=== PATIENT | female | born 1985 | race Caucasian/White ===

== ENCOUNTER 2024-01-16 16:43 | Emergency (ER) | payer OTHER, SELFPAY ==
--- NOTE | 2024-01-16 16:45 | DI.RAD_ITS ---
Exam(s) XR ANKLE LT COMPLETE EXAM: XR ANKLE LT COMPLETE CLINICAL HISTORY: rolled L ankle this am TECHNIQUE: 2D digital imaging was performed of the left ankle. Three images were obtained. AP, lat eral and oblique views were obtained. COMPARISON: No exams were available for comparison FINDINGS: BONES: No acute fracture is present. No bony destructive lesion is seen. JOINTS:The ankle mortise is normally aligned. SOFT TISSUE: Mild soft tissue swelling laterally. IMPRESSION: No acute fracture or dislocation. DATA REPOSITORY: RADIATION DOSE DELIVERED:
[2024-01-16 16:48] VITALS: BP 137/52; PULSE 93; RESP 18; TEMP 36.1; O2SAT 98
--- NOTE | 2024-01-16 17:32 | ED.GENADUL_ITS ---
Discharge Plan Disposition Patient Disposition: Home Condition: Stable Discharge Details Clinical Impression: Sprain of left ankle ED Provider: Eric Palacio Home Meds and New Rx's Prescriptions: Continued venlafaxine [Effexor XR] 150 mg capsule,extended release 24hr 150 mg PO DAILY Discharge Instructions Instructions: Ankle Sprain ED Additional Instructions: You were seen in the emergency department for the sprain of your left ankle, there is no acute fracture seen on x-ray, we will wrap the ankle with an Jeremy wrap for you, please rest, ice, compress and elevate the ankle often over the next few days, please use therapeutic dosing of Tylenol (acetamenophen) & Advil (ibuprofen) in an alternating fashion as follows: Take 1000mg of Tylenol every 6 hours without missing doses- that is 4 times per day. [place] in between the Tylenol dosings, take 400-600mg of Advil also on a 6 hour schedule, that is also 4 times per day. The daily maximum dosing of Tylenol is 4000mg, and the daily maximum dosing of Advil is 2400mg. This is safe to do for weeks. Please note that some common cold medications & prescription pain medications may contain acetamenophen and you need to read OTC drug labels and factor that in to maximum daily dosings. Please follow-up with orthopedics for pain lasting longer than 2 weeks, please return to the emergency department for severe increase in pain, inability to ambulate, complete numbness distal with skin changes Referrals: [facility] [Provider Group] HPI General Date/Time Provider Initiated Documentation: 01/16/24 16:57 . HPI Narrative: 38 year-old female presents to ED today by POV/ambulating with a chief complaint of L ankle pain- rolled it last night. R-side dominant. Quality described as mild medial ankle pain- no sharp tenderness, able to ambulate, no radiation to numbness/tingling, swelling, deformity, skin changes. Severity is described as mild to moderate. Palliating factors include nothing specific attempted. Provoking factors include nothing specific. Patient not anticoagulated. Related Data Home Medications ?Medication ?Instructions ?Recorded ?Confirmed venlafaxine 150 mg 150 mg PO DAILY 01/16/24 01/16/24 capsule,extended release 24 hr (Effexor XR) Allergies Allergy/AdvReac Type Severity Reaction Status Date / Time No Known Allergies Allergy Unverified 01/16/24 16:48 General Stated Complaint: Orthopedic STEFANIE: 4 Review of Systems All systems reviewed & are unremarkable except as noted in HPI and below Exam Narrative Exam Narrative: GENERAL APPEARANCE: Well-nourished, non-toxic, awake and alert, atraumatic, no acute distress. SKIN: Warm, pink, dry, intact, without rashes/lesions/ulcerations. HEAD: Normocephalic, atraumatic, normal hair distribution for gender/age. EYES: Normal conjunctiva, no exudates on lids/lashes. ENT: Nares patent, no circumoral cyanosis, no facial swelling NECK: Supple, trachea midline, painless cervical ROM. LUNGS/CHEST: Non-labored respirations, normal A/P diameter, symmetrical expansion, no chest wall deformity HEART (CV/PV): Regular rate, L dorsalis pedis pulse 2+, no peripheral edema, no JVD. ABDOMEN: Soft, non-distended, no guarding. MSK: Normal ROM, no swelling/deformity to bilateral UEs or LEs, moving all extremities without weakness, no cyanosis, spine midline without tenderness, normal curvature, mild left medial ankle tenderness without crepitus, swelling, deformity or ecchymosis, range of motion intact in the ankle, sensation and circulation intact distally NEURO: Mental Status AAOx4 - alert to person, place, time, events No facial droop, no forehead involvement. Motor: No focal weakness - strength 5/5 in bilateral UEs and LEs, proximal and distal, symmetric. Sensory: sensation intact to light touch globally. Gait normal: patient ambulated without ataxia into ED room. PSYCH: euthymic, cooperative, pleasant, appropriate speech Course Vital Signs Vital signs: Vital Signs Temperature 36.1 C L 01/16/24 16:48 Pulse 93 H 01/16/24 16:48 Respiratory Rate 18 01/16/24 16:48 Blood Pressure 137/52 L 01/16/24 16:48 Pulse Oximetry 98 01/16/24 16:48 Temperature 36.1 C L 01/16/24 16:48 Pulse 93 H 01/16/24 16:48 Respiratory Rate 18 01/16/24 16:48 Respiratory Effort Normal 01/16/24 16:50 Blood Pressure 137/52 L 01/16/24 16:48 Pulse Oximetry 98 01/16/24 16:48 Pain Level 5 01/16/24 16:48 Lab/Test Results Lab/Test Results: POC- Test(urine) Negative Medical Decision Making This dictation utilizes [id number] dictation software and may contain unedited grammatical errors. 38 year-old female presents to ED today by POV/ambulating with a chief complaint of L ankle pain- rolled it last night. R-side dominant. Quality described as mild medial ankle pain- no sharp tenderness, able to ambulate, no radiation to numbness/tingling, swelling, deformity, skin changes. Severity is described as mild to moderate. Palliating factors include nothing specific attempted. Provoking factors include nothing specific. Patients' medical history: Negative, otherwise healthy. Family and social history: Noncontributory. Pertinent exam findings / vital signs include mild left medial ankle tenderness without crepitus, no swelling or deformity, no bruising, sensation and intact, circulation intact distal. Differential / pathologies of concern include ankle sprain, unlikely fracture, not neurovascular compromise. Diagnostic studies of: -XR L ankle-no acute fracture. Interventions of: -Jeremy wrap. ED Course/Assessment/Plan: 38-year-old female rolled her ankle last night having some ankle pain here for x-ray, x-rays negative for fracture, recommend RICE therapy and therapeutic dosing Tylenol and ibuprofen, recommend follow-up with orthopedics for pain lasting longer than 2 weeks but the patient is ambulating without issue. Strict return criteria for signs of neurovascular compromise. Findings not consistent with fracture, neurovascular compromise. Disposition of sprain of left ankle. Patient verbalized understanding of the plan and return to ED criteria and engaged in shared decision making. Medical Records Medical records reviewed: Yes I reviewed the patient's medical records. Imaging Data Radiologic Study: Attestation: I personally reviewed and interpreted this imaging study as follows: Imaging: X-Ray Radiologist's impression: EXAM: XR ANKLE LT COMPLETE CLINICAL HISTORY: rolled L ankle this am TECHNIQUE: 2D digital imaging was performed of the left ankle. Three images were obtained. AP, lateral and oblique views were obtained. COMPARISON: No exams were available for comparison FINDINGS: BONES: No acute fracture is present. No bony destructive lesion is seen. JOINTS:The ankle mortise is normally aligned. SOFT TISSUE: Mild soft tissue swelling laterally. IMPRESSION: No acute fracture or dislocation. Quality:SDOH Health Related Social Needs: No Data to Display PFSH All Active Problems (Updated 01/16/24 @ 17:41 by LIZBETH Rolon) Sprain of left ankle (Acute) Social History Smoking/Tobacco Use Status: Never Smoking risk assessment performed?: Yes Alcohol Intake: never Drug use: Never Substance use type: does not use Housing: house Do you feel safe at home: Yes Do you feel safe in your relationship?: Yes
[2024-01-16 18:13] VITALS: BP 130/80; PULSE 80; RESP 20; TEMP 36.9; O2SAT 98
== END 2024-01-16 18:15 | disposition home or self-care (01) ==
PROVIDERS: Emergency Provider Physician Assistant; PCP Internal Medicine
DX: S93.402A Sprain of unspecified ligament of left ankle, initial encounter (principal); X58.XXXA Exposure to other specified factors, initial encounter
CPT/HCPCS: 81025; 99283; 73610

== ENCOUNTER 2024-05-16 01:28 | Outpatient (CLI) | payer OTHER, SELFPAY ==
--- NOTE | 2024-05-16 | DI.RAD_ITS ---
Exam(s) XR CERVICAL SPINE COMP 4-5V EXAM: XR CERVICAL SPINE COMP 4-5V CLINICAL HISTORY: NECK PAIN,CERVICALGIA,M54.2,[id number]. TECHNIQUE: 2D digital imaging was performed. Six images were obtained. AP, odontoid, lateral and myriam ateral oblique images were obtained. COMPARISON: No exams were available for comparison FINDINGS: The odontoid is intact. The lateral masses are well aligned. There is normal alignment of the cervi giulia spine. The vertebral bodies, disc spaces and posterior elements are well maintained. No acute f racture or subluxation is present. No significant neural foraminal stenosis is present. The cervical thoracic junction is well maintained. The prevertebral soft tissues are unremarkable. Lung apices a re clear. IMPRESSION: Unremarkable radiographs of the cervical spine. DATA REPOSITORY: RADIATION DOSE DELIVERED:
== END 2024-05-16 01:48 ==
PROVIDERS: PCP Internal Medicine; Visit Provider Internal Medicine
DX: M54.2 Cervicalgia (principal)
CPT/HCPCS: 72050